=== PATIENT | female | born 1955 | race Caucasian/White ===

== ENCOUNTER 2020-12-18 01:10 | Emergency (ER) | payer MEDICARE ==
[~2020-12-18] VITALS: Ht 167.6 cm; Wt 72.1 kg
[2020-12-18] MEDS ORDERED: CEFUROXIME500 MG PO (01:44)
[2020-12-18] MEDS ORDERED: PYRIDIUM200 MG PO (01:46)
[2020-12-18 02:00] VITALS: BP 162/84
== END 2020-12-18 02:00 | disposition home or self-care (01) ==
LOC: FSED 01:25
DX: R30.0 Dysuria (principal); N39.0 Urinary tract infection, site not specified; R35.0 Frequency of micturition; M06.9 Rheumatoid arthritis, unspecified; G89.29 Other chronic pain
CPT/HCPCS: 81003; 99282